=== PATIENT | female | born 1935 | race Caucasian/White ===

== ENCOUNTER 2018-06-22 12:47 | Observation (INO) | payer MEDICARE ==
[2018-06-22 13:25] LABS: #Basophils 0.1 thou/uL (0.0-0.2); #Eosinphils 0.3 thou/uL (0.0-0.7); #Lymphocytes 1.9 thou/uL (1.20-3.40); #Monocytes 0.6 thou/uL (0.11-0.59); #Neutrophils 8.2 thou/uL (1.40-6.50); %Basophils 0.6 % (0.0-1.0); %Lymphocytes 16.7 % (21.0-51.0); %Monocytes 5.6 % (0.0-10.0); %Neutrophils 74.1 % (42.0-75.0); Hemoglobin 12.6 g/dL (12.0-16.0); Mean Corpuscular HGB CONC 32.8 g/dL (32.0-36.0); Mean Corpuscular Hemoglobin 28.7 pg (27.0-31.0); Mean Corpuscular Volume 87.5 fL (78.0-98.0); Platelet Count 286 thou/uL (130-400); RBC Distribution Width 14.1 % (11.5-14.5); Red Blood Cell (RBC) Count 4.38 mill/uL (4.20-5.40); White Blood Cell (WBC) Count 11.1 thou/uL (4.8-10.8)
[2018-06-22 13:48] LABS: ALT (SGPT) 8 U/L (8-55); AST (SGOT) 14 U/L (5-34); Albumin 4.2 g/dL (3.4-4.8); Alkaline Phosphatase 52 U/L (40-150); Anion Gap 17 mmol/L (10-20); BUN (Urea Nitrogen) 26 mg/dL (9.8-20.1); Bilirubin, Total 0.3 mg/dL (0.2-1.2); Calc. Creatinine Clearance 0 mL/min (70-130); Calcium 10.5 mg/dL (7.8-10.44); Carbon Dioxide 25 mmol/L (23-31); Chloride 103 mmol/L (98-107); Estimated GFR-MDRD 61; Globulin 3.6 g/dL (2.4-3.5); Glucose 121 mg/dL (83-110); Protein, Total 7.8 g/dL (6.0-8.3); Sodium 141 mmol/L (136-145)
--- NOTE | 2018-06-22 14:07 | CT ---
CT OF HEAD NONCONTRAST: INDICATION: Posttraumatic pain. FINDINGS: There is mild ventriculomegaly with periventricular hypoattenuation bilaterally. Age-indeterminate l acunar infarction of the left thalamus is present. There is multifocal hypoattenuation of the left l entiform nucleus indicating sequelae of chronic ischemia. No intracranial hemorrhage, mass effect, o r midline shift. There is no acute fluid level of the paranasal sinuses. IMPRESSION: 1. Mild ventriculomegaly. Correlate for evidence of normal-pressure hydrocephalus, as ventricular s ize is out of proportion to the volume or cerebral sulci. 2. Mild chronic ischemic disease and scattered lacunar infarctions as discussed above. 3. No posttraumatic acute intracranial hemorrhage visualized. POS: TPC
--- NOTE | 2018-06-22 14:09 | RAD ---
TWO VIEWS RIGHT HIP: DATE: 06/22/2018. HISTORY: Unwitnessed fall this morning. The patient injured her right hp. Unable to stand. FINDINGS: There is mild hip osteoarthritis. No obvious fracture is seen, and there is no dislocation. Promine nt vascular calcifications are seen in the iliac and femoral arteries. There is mild sacroiliac join t osteoarthritis present. IMPRESSION: No obvious acute fracture is seen on this examination. If there is a strong clinical concern for fra cture, CT scan versus MRI right hip recommended for further evaluation. POS: JOSIE
--- NOTE | 2018-06-22 14:13 | RAD ---
FRONTAL VIEW CHEST: INDICATION: Posttraumatic pain. FINDINGS: The lungs reveal no consolidation, discrete pneumothorax, or significant effusion. There is vascular calcification. Cardiac silhouette is normal in size for portable technique. There is slight efface ment of the lateral left costophrenic sulcus. IMPRESSION: 1. No focal consolidation. 2. Minimal effacement of the left lateral costophrenic sulcus. Consider followup with dedicated 2-v iew chest for further evaluation. POS: TPC
[2018-06-22 15:17] LABS: Troponin I Less than 0.010 ng/mL (< 0.028)
[2018-06-22] MEDS ORDERED: Acetaminophen 325 MG TAB PO PRN (16:40)
[2018-06-22] MEDS ORDERED: Ondansetron ODT 4 MG TAB PO PRN (16:40)
[2018-06-22] MEDS ORDERED: Dextrose 5% in Water 1,000 ML IV PRN (16:43)
[2018-06-22] MEDS ORDERED: Dextrose 50% Abboject 50 ML SYRINGE SLOW IVP PRN (16:43)
[2018-06-22] MEDS ORDERED: HumaLOG 300 UNITS/3 ML VIAL SC PRN (16:43)
[2018-06-22] MEDS ORDERED: hydrALAZINE 20 MG/ML VIAL SLOW IVP PRN (16:46)
[2018-06-22] MEDS ORDERED: Labetalol HCl 100 MG/20 ML VIAL SLOW IVP PRN (16:46)
[2018-06-22 17:50] LABS: Bilirubin Negative (Negative); Blood, Urine Negative (Negative); Clarity CLOUDY (Clear); Glucose, Urine (Dipstick) Negative (Negative); Leukocyte Moderate (Negative); Nitrite Negative (Negative); Protein, Urine (Dipstick) Negative (Neg-Trace); Specific Gravity, Urine 1.019 (1.002-1.036)
[2018-06-22 17:52] LABS: Free T4 (Free Thyroxine) 1.31 ng/dL (0.70-1.48)
[2018-06-22 17:54] LABS: Bacteria/HPF 4+ HPF (None Seen); Hyaline Casts/LPF 4-6 HYALINE CAST LPF (0-3 Hyaline); Pathc Cast-AUWi Flag 1.16 (0-2.49); RBC/HPF 0-3 HPF (0-3); Squamous Epithelial None Seen HPF (0-3)
--- NOTE | 2018-06-22 18:51 | HP ---
PRIMARY CARE PHYSICIAN: Dr. Jered Tovar. HISTORY OF PRESENT ILLNESS: This morning, the lady got up, got dressed. She was going to the door to check on friends. She got suddenly lightheaded, dizzy, fell, and hit her head on the right side and right hip. She came too quickly, she was little fuzzy headed afterwards. She had no visual complaints; however, she does have some marked decreased vision with macular degeneration. She had no focal weakness. When she got up, she noted her blood pressure was up. She came to the hospital. She had been evaluated and [facility]. History of CVA in 2018 with slurred speech and some other mild symptoms, which resolved completely; hypertension; dyslipidemia; osteoarthritis; hypothyroidism, currently off medicines; and diabetes mellitus, type 2. CURRENT MEDICATIONS: Include: 1. Ambien 10 mg at bedtime p.r.n. 2. Aspirin 81 mg a day. 3. Celebrex 100 mg a day. 4. Crestor 10 mg a day. 5. Diovan 160 mg a day. 6. Metformin 1000 mg p.o. b.i.d. 7. Paxil 10 mg a day. 8. Protonix 40 mg a day. ALLERGIES: CODEINE MAKES HER NAUSEATED. PAST SURGICAL HISTORY: She has had an implant in the right knee. FAMILY HISTORY: Mother is , she had diabetes and thyroid cancer. Grandmother had diabetes mellitus. Her father had coronary artery disease and has . SOCIAL HISTORY: She has been 24 years. Quit smoking 30 years ago. Drinks no alcohol. She does not want to have her life prolonged artificially, but she considers an acute resuscitation with hopes of returning to normal life acceptable. REVIEW OF SYSTEMS: GENERAL: See present illness. No fevers, sweats, or chills. EYES: Poor vision. No double vision or flashing of lights. EARS, NOSE, AND THROAT: No ear pain or drainage. No nasal bleeding. No trouble swallowing. CARDIAC: No chest pain. No orthopnea or paroxysmal nocturnal dyspnea. RESPIRATORY: No cough, wheezing, or asthma. GASTROINTESTINAL: No nausea, vomiting, abdominal pain, diarrhea, or constipation. GENITOURINARY: No hematuria or dysuria. MUSCULOSKELETAL: No pain or swelling in arms or legs. NEUROLOGIC: History of stroke with complete resolution. PSYCHIATRIC: She takes Paxil for some anxiety and depression. SKIN: No bruising, bleeding, or rash. HEME AND LYMPH: No tender or swollen lymph nodes in the axilla, inguinal, or cervical area. PHYSICAL EXAMINATION: GENERAL: She is an alert, pleasant, cooperative lady, in no distress. VITAL SIGNS: Blood pressure 170/125, pulse 92, and respirations 18. Blood pressure has been as low as 140/90 with pulse of 88. O2 sats 94% to 95% on room air. She is afebrile. HEAD, EYES, EARS, NOSE, AND THROAT: Pupils are equal, round, and reactive to light. Extraocular movements are intact. Nose is clear. Throat is clear. NECK: Supple without jugular venous distention. No adenopathy, thyromegaly, or bruits. CHEST: Clear to auscultation and percussion. HEART: Regular rate and rhythm. First and second heart sounds are clear. There are no murmurs or gallops. ABDOMEN: Soft. Bowel sounds are normal. There is no hepatosplenomegaly. No mass. No rebound or bruits. EXTREMITIES: No cyanosis, clubbing, or edema. Pulses; carotid, radial, femoral, and dorsalis pedis pulses intact. SKIN: Warm and dry with a mild contusion of her right knee and her right lateral head. HEME/LYMPH: No tender or swollen lymph nodes in the axilla, inguinal, and cervical area. NEUROLOGIC: Cranial nerves 2 through 12 are intact. Deep tendon reflexes are symmetric. Moves all extremities. LABORATORY DATA: CT of the brain shows mild ventriculomegaly, a suggestion of possible normal pressure hydrocephalus was made by Radiology. Chest x-ray was reviewed by myself. No cardiomegaly, CHF, or infiltrate. There is atherosclerosis of the aortic knob, reviewed by me. EKG has been searched for, supposedly one is done and I have not found it yet. If I do not find one soon, I will have another ordered. LABORATORY DATA: Comprehensive metabolic profile; BUN 25, glucose 121, calcium 10.5, otherwise normal. White cell count 11.1, hemoglobin 12.6, and platelet count 286,000. PLAN: 1. Monitored bed overnight. 2. The patient has had recent carotid artery ultrasound, we will not repeat. 3. Repeat CBC. Basic metabolic profile in the morning. 4. Repeat thyroid function test. 5. Selected home medicines. 6. We will discuss referral to Neurosurgery as an outpatient for normal pressure hydrocephalus workup after all the rest is done. Job ID: [id number]
[2018-06-22 23:26] VITALS: BMI 25.0
[2018-06-23] MEDS ORDERED: Aspirin 81 mg Enteric Coated Tablet PO SCH ×2 (00:45→21:00)
[2018-06-23] MEDS ORDERED: Zolpidem Tartrate 5 MG TAB PO SCH ×2 (00:45→21:00)
[2018-06-23 07:06] LABS: #Basophils 0.1 thou/uL (0.0-0.2); #Eosinphils 0.3 thou/uL (0.0-0.7); #Lymphocytes 2.2 thou/uL (1.20-3.40); #Monocytes 0.8 thou/uL (0.11-0.59); %Basophils 0.8 % (0.0-1.0); %Lymphocytes 21.7 % (21.0-51.0); %Monocytes 7.3 % (0.0-10.0); %Neutrophils 67.2 % (42.0-75.0); Hemoglobin 10.9 g/dL (12.0-16.0); Mean Corpuscular HGB CONC 31.9 g/dL (32.0-36.0); Mean Corpuscular Hemoglobin 27.9 pg (27.0-31.0); Mean Corpuscular Volume 87.5 fL (78.0-98.0); Platelet Count 250 thou/uL (130-400); White Blood Cell (WBC) Count 10.4 thou/uL (4.8-10.8)
[2018-06-23 07:30] LABS: Anion Gap 11 mmol/L (10-20); BUN (Urea Nitrogen) 23 mg/dL (9.8-20.1); Calc. Creatinine Clearance 58 mL/min (70-130); Calcium 9.4 mg/dL (7.8-10.44); Carbon Dioxide 26 mmol/L (23-31); Chloride 105 mmol/L (98-107); Estimated GFR-MDRD 71; Glucose 105 mg/dL (83-110); Potassium 3.7 mmol/L (3.5-5.1); Sodium 138 mmol/L (136-145)
[2018-06-23 08:16] VITALS: BP 131/73; TEMP 97.8
--- NOTE | 2018-06-23 08:53 | DIS ---
DATE OF ADMISSION: 06/22/2018 DATE OF DISCHARGE: 06/23/2018 TRANSFER OF CARE: PRIMARY CARE PROVIDER: Jered Tovar MD DISPOSITION: Discharged home. FINAL DIAGNOSES: 1. Syncope, unknown etiology. 2. Hypertension. 3. Hypothyroidism. 4. Possible normal pressure hydrocephalus based on CT scan. 5. Diabetes type 2. DISCHARGE MEDICATIONS: Same as home medicines. 1. Metformin 500 mg twice a day. 2. Ambien 10 mg nightly. 3. Valsartan/hydrochlorothiazide 160/12.5 daily. 4. Protonix 40 mg a day. 5. Paxil 20 mg a day. 6. Celebrex 200 mg a day. 7. Aspirin 81 mg a day. 8. Lipitor 10 mg a day. ALLERGIES: ALLERGIC TO CODEINE. DIET: Heart-healthy. Pending at the time of discharge, nothing. CODE STATUS: Full. HOSPITAL COURSE: The patient became suddenly dizzy, fell, brief loss of consciousness, had a mild bump on her head and her knee, was brought to the hospital. CT scan of the brain with no acute abnormality, but there was a question of possible normal pressure hydrocephalus. EKG was normal. The patient was monitored overnight. Thyroid functions were checked. TSH 2.75, free T4 of 1.3, and free T3 of 2.5. Her calcium was slightly elevated at 10.5 and repeat 9.4. Remainder of her blood work was unremarkable. She had a chest x-ray that was unremarkable. Right hip x-ray that was unremarkable. She was monitored overnight, had no arrhythmia. She feels well this morning. Neurological is intact. Vital signs are stable. She is being discharged to follow up with Dr. Tovar within a week. Family had been instructed to obtain an appointment with him. She will need to be referred to Neurosurgery of his choice for evaluation of normal pressure hydrocephalus as an outpatient. Job ID: [id number]
[2018-06-23] MEDS ORDERED: PARoxetine 20 MG TAB PO SCH (09:00)
[2018-06-23] MEDS ORDERED: Atorvastatin Calcium 10 MG TAB PO SCH (09:00)
== END 2018-06-23 11:48 | disposition home or self-care (01) ==
LOC: ERS 12:47 → ERHOLD 16:12 → 2SW 21:53
PROVIDERS: ADMIT Internal Medicine; ATTEND Internal Medicine
DX: R55 Syncope and collapse (principal); E78.5 Hyperlipidemia, unspecified; M19.90 Unspecified osteoarthritis, unspecified site; E11.9 Type 2 diabetes mellitus without complications; E03.9 Hypothyroidism, unspecified; H35.30 Unspecified macular degeneration; I10 Essential (primary) hypertension; Z86.73 Personal history of transient ischemic attack (TIA), and cerebral infarction without residual deficits; Z87.891 Personal history of nicotine dependence; Z79.82 Long term (current) use of aspirin; Z79.84 Long term (current) use of oral hypoglycemic drugs; Z79.899 Other long term (current) drug therapy; Z88.5 Allergy status to narcotic agent
CPT/HCPCS: 51701; 70450; 71045; 73502; 80048; 82962; 83880; 84439; 84481; 84484 ×2; 85025; 93005; 94760; 99285; G0378 ×2; 36415; 36416; 80053; 81003; 81015; 84443

== ENCOUNTER 2020-02-04 23:42 | Emergency (ER) | payer MEDICARE ==
[2020-02-05] MEDS ORDERED: Morphine 2 MG/ML SYRINGE ONE (00:19)
--- NOTE | 2020-02-05 07:16 | RAD ---
3 VIEWS LEFT SHOULDER: Date: 02/05/2020 COMPARISON: None. HISTORY: Left upper arm injury after fall. FINDINGS: Three views of the left shoulder show a fracture of the left humeral neck which is mildly comminuted. No dislocation of the humeral head is seen. The visualized left thorax is unremarkable. IMPRESSION: Left humeral neck fracture. POS: EAA
--- NOTE | 2020-02-05 07:17 | RAD ---
2 VIEWS LEFT HUMERUS: Date: 02/05/2020 COMPARISON: None. HISTORY: Fall with left upper arm injury. FINDINGS: 2 views of the left humerus show a fracture of the left humeral neck. Overlying soft tissue swelling is seen. No dislocation is seen. IMPRESSION: Left humeral neck fracture. POS: EAA
--- NOTE | 2020-02-05 09:36 | CT ---
PRELIMINARY REPORT/[facility]/EMERGENCY AFTER HOURS PROCEDURE: EXAM: CT Head Without Intravenous Contrast. CLINICAL HISTORY: Pt reports pain to left shoulder radiating down to the forearm s/p trip and fall from standing just P TA. Denies any other injury or complaint. Did not strike her head or lose consciousness. No alleviati ng factors. Exacerbated by movement and palpation. TECHNIQUE: Axial computed tomography images of the head/brain without intravenous contrast. COMPARISON: CT\SR - CT BRAIN WO CON - 06/22/2018 01:11 PM [employer]USTRI[employer]ER FINDINGS: BRAIN: No acute intraparenchymal hemorrhage. Periventricular and subcortical white matter hypodensities. T he current infarct in the left thalamus. No mass lesion. No CT evidence for acute territorial infarc t. No midline shift or extra-axial collection. VENTRICLES: No hydrocephalus. ORBITS: The orbits are unremarkable. SINUSES AND MASTOIDS: The paranasal sinuses and mastoid air cells are clear. SOFT TISSUES: No significant facial or scalp soft tissue swelling evident. No radiopaque foreign body is seen. BONES: No acute skull fracture. IMPRESSION: No acute intracranial abnormality. Periventricular and subcortical white matter hypodensities likely representing sequela of chronic cassie rovascular ischemic changes. Left thalamic lacunar infarct. ELECTRONICALLY SIGNED BY: Morgan Montenegro DO Feb 05, 2020 12:40:12 AM CDT This report is intended for review by the ordering physician only, in accordance of law. If you recei ve this report in error, please call [facility] at [phone]. FINAL REPORT EMERGENCY AFTER HOURS CT BRAIN WITHOUT CONTRAST: COMPARISON: 08/23/2017. FINDINGS/IMPRESSION: I agree with the findings and impression given in the preliminary report per [facility] physici an. Small vessel ischemic disease without acute intracranial abnormality. POS: GEE
== END 2020-02-05 02:26 | disposition home or self-care (01) ==
LOC: ERS 23:42
DX: S42.212A Unspecified displaced fracture of surgical neck of left humerus, initial encounter for closed fracture (principal); E11.9 Type 2 diabetes mellitus without complications; I10 Essential (primary) hypertension; Z86.73 Personal history of transient ischemic attack (TIA), and cerebral infarction without residual deficits; F41.9 Anxiety disorder, unspecified; Z87.891 Personal history of nicotine dependence; W01.0XXA Fall on same level from slipping, tripping and stumbling without subsequent striking against object, initial encounter
CPT/HCPCS: 70450; 96372; J2270

== ENCOUNTER 2021-07-01 14:53 | Emergency (ER) | payer MEDICARE ==
[2021-07-01 17:00] LABS: PTT 33.3 sec (22.9-36.1); Prothrombin Time 13.6 sec (12.0-14.7)
[2021-07-01] MEDS ORDERED: Labetalol HCl 100 MG/20 ML VIAL ONE (17:17)
[2021-07-01 17:19] LABS: Anion Gap 20 mmol/L (10-20); BUN (Urea Nitrogen) 27 mg/dL (9.8-20.1); Calc. Creatinine Clearance 0 mL/min (70-130); Calcium 9.3 mg/dL (7.8-10.44); Carbon Dioxide 16 mmol/L (23-31); Chloride 108 mmol/L (98-107); Glucose 105 mg/dL (83-110); Potassium 4.1 mmol/L (3.5-5.1); Sodium 140 mmol/L (136-145)
[2021-07-01] MEDS ORDERED: Losartan 25 MG TAB PO SCH (17:30)
[2021-07-01 17:56] LABS: #Basophils 0.1 thou/uL (0.0-0.2); #Eosinphils 0.3 thou/uL (0.0-0.7); #Neutrophils 11.6 thou/uL (1.40-6.50); %Basophils 0.6 % (0.0-1.0); %Eosinophils 2.3 % (0.0-10.0); %Lymphocytes 13.3 % (21.0-51.0); %Monocytes 6.4 % (0.0-10.0); %Neutrophils 77.4 % (42.0-75.0); Hemoglobin 11.2 g/dL (12.0-16.0); Mean Corpuscular HGB CONC 32.3 g/dL (32.0-36.0); Mean Corpuscular Hemoglobin 29.9 pg (27.0-31.0); Mean Corpuscular Volume 92.5 fL (78.0-98.0); Mean Platelet Volume 7.3 fL (7.4-10.4); Platelet Count 279 thou/uL (130-400); RBC Distribution Width 13.4 % (11.5-14.5); Red Blood Cell (RBC) Count 3.76 mill/uL (4.20-5.40)
[2021-07-01 18:58] LABS: Bacteria/HPF 4+ HPF (None Seen); Bilirubin Negative (Negative); Blood, Urine 2+ (Negative); Clarity Turbid (Clear); Glucose, Urine (Dipstick) Normal (Negative); Ketone, Urine Negative (Negative); Leukocyte 500 Leu/uL (Negative); Nitrite 1+ (Negative); Protein, Urine (Dipstick) 50 mg/dL (Neg-Trace); Specific Gravity, Urine 1.026 (1.002-1.036); Squamous Epithelial 0-3 HPF (0-3); Urobilinogen Normal mg/dL (Less than 2); WBC/HPF Greater than 50 HPF (0-3); pH, Urine 5.5 (5.0-9.0)
== END 2021-07-01 19:51 | disposition home or self-care (01) ==
LOC: ERS 14:53
DX: S01.112A Laceration without foreign body of left eyelid and periocular area, initial encounter (principal); S01.01XA Laceration without foreign body of scalp, initial encounter; I10 Essential (primary) hypertension; E11.9 Type 2 diabetes mellitus without complications; Z86.73 Personal history of transient ischemic attack (TIA), and cerebral infarction without residual deficits; Z79.82 Long term (current) use of aspirin; Z79.84 Long term (current) use of oral hypoglycemic drugs; Z79.899 Other long term (current) drug therapy; W18.39XA Other fall on same level, initial encounter
CPT/HCPCS: 12052; 36415; 51701; 70450; 71045; 72170; 80048; 81003; 81015; 85025; 85610; 85730; 93005

== ENCOUNTER 2022-04-14 07:48 | Observation (INO) | payer MEDICARE ==
[2022-04-14 08:53] LABS: Hemoglobin 9.9 g/dL (12.0-16.0); Mean Corpuscular HGB CONC 31.4 g/dL (32.0-36.0); Mean Corpuscular Hemoglobin 28.7 pg (27.0-31.0); Mean Corpuscular Volume 91.3 fL (78.0-98.0); Mean Platelet Volume 7.7 fL (7.4-10.4); Platelet Count 164 thou/uL (130-400); RBC Distribution Width 14.5 % (11.5-14.5); Red Blood Cell (RBC) Count 3.45 mill/uL (4.20-5.40); White Blood Cell (WBC) Count 11.4 thou/uL (4.8-10.8)
[2022-04-14 09:01] LABS: INR-International Normal Ratio 1.1; PTT 44.1 sec (22.9-36.1); Prothrombin Time 14.6 sec (12.0-14.7)
[2022-04-14 09:10] LABS: ALT (SGPT) 44 U/L (8-55); AST (SGOT) 76 U/L (5-34); Albumin 2.5 g/dL (3.4-4.8); Alkaline Phosphatase 77 U/L (40-110); Anion Gap 12 mmol/L (10-20); BUN (Urea Nitrogen) 25 mg/dL (9.8-20.1); Bilirubin, Total 0.2 mg/dL (0.2-1.2); CK (CPK) 20 U/L (29-168); Calc. Creatinine Clearance 0 mL/min (70-130); Calcium 7.9 mg/dL (7.8-10.44); Carbon Dioxide 23 mmol/L (23-31); Chloride 108 mmol/L (98-107); Estimated GFR 76; Globulin 3.3 g/dL (2.4-3.5); Glucose 129 mg/dL (83-110); Lipase 13 U/L (8-78); Potassium 3.7 mmol/L (3.5-5.1); Protein, Total 5.8 g/dL (5.8-8.1); Sodium 139 mmol/L (136-145)
[2022-04-14] MEDS ORDERED: Acetaminophen 325 MG TAB PO PRN (09:20)
[2022-04-14 09:21] LABS: Band 19 % (5-11); Eosinophils 1 % (0-10); Lymphocytes 35 % (21-51); MDiff Complete? YES; Metamyelocyte 2 % (0-0); Monocytes 8 % (0-10); Myelocyte 1 % (0-0); Neutrophil 19 % (42-75); Ovalocytes SLIGHT = 2-5 cells (100X) (0-1/hpf); Platelet Morphology Comment Appears Adequate; Polychromasia SLIGHT = 2-3 cells (100X) (0-2/hpf); Reactive Lymphocytes 14 % (0-10); Tear Drops SLIGHT = 2-5 cells (100X) (0-1/hpf)
[2022-04-14] MEDS ORDERED: Pantoprazole 40 MG VIAL ONE (09:34)
[2022-04-14] MEDS ORDERED: Dextrose 50% Abboject 50 ML SYRINGE SLOW IVP PRN (10:00)
[2022-04-14] MEDS ORDERED: Dextrose 5% in Water 1,000 ML IV PRN (10:00)
[2022-04-14] MEDS ORDERED: HumaLOG 300 UNITS/3 ML VIAL SC PRN ×2 (10:00)
[2022-04-14 10:20] LABS: SARS-CoV-2 NAA Rapid Test Not Detected (NotDetected)
[2022-04-14 15:14] VITALS: BMI 25.4
[2022-04-14] MEDS ORDERED: GoLYTELY 4,000 ml Bottle PO SCH (17:15)
[2022-04-14] MEDS: Pantoprazole 40 MG VIAL IVP SCH (20:14)
[2022-04-14] MEDS ORDERED: Famotidine 20 MG TAB PO SCH (21:00)
[2022-04-15] MEDS ORDERED: Zolpidem Tartrate 5 MG TAB PO SCH ×2 (02:45→21:00)
[2022-04-15 04:49] LABS: #Eosinphils 0.1 thou/uL (0.0-0.7); #Lymphocytes 4.8 thou/uL (1.20-3.40); #Monocytes 0.8 thou/uL (0.11-0.59); #Neutrophils 3.9 thou/uL (1.40-6.50); %Basophils 0.2 % (0.0-1.0); %Eosinophils 0.8 % (0.0-10.0); %Lymphocytes 49.9 % (21.0-51.0); %Monocytes 8.8 % (0.0-10.0); %Neutrophils 40.3 % (42.0-75.0); Hemoglobin 8.1 g/dL (12.0-16.0); Mean Corpuscular HGB CONC 31.3 g/dL (32.0-36.0); Mean Corpuscular Hemoglobin 28.7 pg (27.0-31.0); Mean Corpuscular Volume 91.8 fL (78.0-98.0); Mean Platelet Volume 7.9 fL (7.4-10.4); Platelet Count 153 thou/uL (130-400); RBC Distribution Width 14.5 % (11.5-14.5); Red Blood Cell (RBC) Count 2.82 mill/uL (4.20-5.40); White Blood Cell (WBC) Count 9.6 thou/uL (4.8-10.8)
[2022-04-15 05:15] LABS: Anion Gap 11 mmol/L (10-20); BUN (Urea Nitrogen) 23 mg/dL (9.8-20.1); Calc. Creatinine Clearance 58 mL/min (70-130); Calcium 7.7 mg/dL (7.8-10.44); Carbon Dioxide 25 mmol/L (23-31); Chloride 107 mmol/L (98-107); Estimated GFR 79; Glucose 119 mg/dL (83-110); Iron 66 ug/dL (50-170); Iron Binding Capacity, Total 180 mcg/dL (265-497); Potassium 3.6 mmol/L (3.5-5.1); Sodium 139 mmol/L (136-145)
[2022-04-15] MEDS ORDERED: Lidocaine 1% MPF 2 ML VIAL ONE (08:16)
[2022-04-15] MEDS ORDERED: PROPOFOL 200 MG/20 ML VIAL ONE (08:16)
[2022-04-15] MEDS ORDERED: Phenylephrine 10 MG/ML VIAL ONE (08:16)
[2022-04-15] MEDS ORDERED: Valsartan 80 MG TAB PO SCH (09:00)
[2022-04-15] MEDS ORDERED: Atorvastatin Calcium 10 MG TAB PO SCH (09:00)
[2022-04-15] MEDS ORDERED: Hydrochlorothiazide 25 MG TAB PO SCH (09:00)
[2022-04-15] MEDS ORDERED: Ondansetron HCl/PF 4 MG/2 ML Vial IVP PRN (09:02)
[2022-04-15] MEDS ORDERED: Promethazine HCl 25 MG/ML VIAL IM PRN (09:02)
[2022-04-15] MEDS ORDERED: Promethazine HCl 25 MG/ML VIAL IVPB PRN (09:02)
[2022-04-15] MEDS: Pantoprazole 40 MG VIAL IVP SCH (09:41)
[2022-04-15 16:31] VITALS: BP 106/62; TEMP 98
[2022-04-16] MEDS ORDERED: Polyethylene Glycol 3350 17 GM Packet PO SCH (09:00)
== END 2022-04-15 18:02 ==
LOC: ERS 07:48 → ERHOLD 09:17 → INTOOBSV 09:17 → 2NO 14:20
PROVIDERS: ADMIT Hospitalist; ATTEND Hospitalist
PROC: 0DB98ZX Excision of Duodenum, Via Natural or Artificial Opening Endoscopic, Diagnostic (ICD-10-PCS; principal; 2022-04-15)
PROC: 0DBP8ZX Excision of Rectum, Via Natural or Artificial Opening Endoscopic, Diagnostic (ICD-10-PCS; 2022-04-15)
PROC: 0DBK8ZX Excision of Ascending Colon, Via Natural or Artificial Opening Endoscopic, Diagnostic (ICD-10-PCS; 2022-04-15)
DX: K57.31 Diverticulosis of large intestine without perforation or abscess with bleeding (principal); K51.40 Inflammatory polyps of colon without complications; K64.4 Residual hemorrhoidal skin tags; K62.89 Other specified diseases of anus and rectum; D62 Acute posthemorrhagic anemia; I10 Essential (primary) hypertension; E78.5 Hyperlipidemia, unspecified; E11.9 Type 2 diabetes mellitus without complications; E03.9 Hypothyroidism, unspecified; K59.03 Drug induced constipation; T45.4X5A Adverse effect of iron and its compounds, initial encounter; Z66 Do not resuscitate; Z86.73 Personal history of transient ischemic attack (TIA), and cerebral infarction without residual deficits; Z79.82 Long term (current) use of aspirin; Z79.84 Long term (current) use of oral hypoglycemic drugs; Z79.899 Other long term (current) drug therapy; Z88.5 Allergy status to narcotic agent; Z20.822 Contact with and (suspected) exposure to COVID-19
CPT/HCPCS: 43239; 45380; 45385; 71045; 80048; 80053; 82550; 82728; 82962 ×2; 83540; 83550; 83605; 83690; 83880; 84484; 85025 ×2; 85610; 85730; 86850; 86900; 86901; 87040; 93005; 96361; 96374; 96376 ×2; 99285; G0378 ×3; U0002; 36415; 36416; 82274; 88305; C9113; J2370; J2704